=== PATIENT | male | born 1970 | race Caucasian/White ===

== ENCOUNTER 2019-03-31 04:58 | Inpatient (IN) ==
[2019-03-26 16:42] LABS: Appearance,Urine CLEAR; Bilirubin,Urine NEG (NEG); Color,Urine YELLOW; Glucose,Urine (UA) NEGATIVE (NEG); Ketones,Urine NEG (NEG); Leukocyte Esterase,Urine NEG /uL (NEG); Nitrate,Urine NEG (NEG); Protein,Urine NEG (NEG); Urine Blood NEG mg/dL (<0.03); Urobilinogen,Urine NEG (NEG)
[2019-03-26 20:13] LABS: Blood Urea Nitrogen 16 mg/dl (6-20); Calcium 9.3 mg/dl (8.6-10.4); Carbon Dioxide 25 mmol/L (22-30); Chloride 104 mmol/L (96-108); Glomerular Filtration Rate 107; Glucose 133 mg/dL (70-105)
[2019-03-26 20:19] LABS: Basophils # (Auto) 0.1 K/mcL (0.0-0.3); Basophils % (Auto) 0.7 % (0.0-2.0); Eosinophils # (Auto) 0.2 K/mcL (0.0-0.7); Eosinophils % (Auto) 2.4 % (0.0-7.0); Granulocytes % (Auto) 47.2 % (38.0-78.0); Hematocrit 41.3 % (41.0-55.0); Hemoglobin 14.2 g/dL (13.5-16.5); Lymphocytes % (Auto) 42.8 % (15.5-49.0); Mean Cell Volume 87.9 fL (80.0-100.0); Mean Corpuscular HGB Conc 34.4 g/dL (31.0-36.0); Mean Platelet Volume 7.6 fL (7.4-10.4); Monocytes # (Auto) 0.5 K/mcL (0.1-0.9); Monocytes % (Auto) 6.9 % (1.0-12.0); Platelet Count 233 K/mcL (140-440); Red Cell Distribution Width 12.7 % (11.5-14.5); WBC 7.1 K/mcL (4.5-11.0)
[2019-03-26 20:45] LABS: Estimated Average Glucose(eAG) 151 mg/dL; Hemoglobin A1C 6.9 % HGB (4.0-6.0)
[2019-03-26 21:00] LABS: INR 0.9 (0.9-1.1); Prothrombin Time 12.3 sec (11.9-14.5)
[2019-03-31] MEDS ORDERED: IPRATROPIUM/ALBUTEROL 3 ML AMPUL.NEB NEB PRN ×2 (05:00→08:23)
[2019-03-31] MEDS ORDERED: SCOPOLAMINE 1 PATCH PATCH TOPICAL PRN (05:00)
[2019-03-31] MEDS ORDERED: ceFAZolin 2 GM in DEXTROSE 5% IN WATER 50 ML IV SCH (06:00)
[2019-03-31] MEDS ORDERED: 0.9 % SODIUM CHLORIDE 9 ML, KETOROLAC 30 MG, ROPIVACAINE HCL/PF 49.5 ML, EPINEPHrine 0.... IJ SCH (06:00)
[2019-03-31] MEDS ORDERED: GABAPENTIN 300 MG CAPSULE PO SCH (06:00)
[2019-03-31] MEDS ORDERED: oxyCODONE 10 MG TAB.ER.12H PO SCH (06:00)
[2019-03-31] MEDS ORDERED: CELECOXIB 200 MG CAPSULE PO SCH (06:00)
[2019-03-31] MEDS ORDERED: ACETAMINOPHEN 500 MG TABLET PO SCH (06:00)
[2019-03-31] MEDS ORDERED: MIDAZOLAM 2 MG/2 ML VIAL IV ONE (07:50)
[2019-03-31] MEDS ORDERED: ONDANSETRON 4 MG/2 ML VIAL IV ONE (07:50)
[2019-03-31] MEDS ORDERED: DEXAMETHASONE 10 MG/ML VIAL IV ONE (07:50)
[2019-03-31] MEDS ORDERED: ePHEDrine 50 MG/ML AMPUL IV ONE (07:50)
[2019-03-31] MEDS ORDERED: LIDOCAINE HCL/PF 100 MG/5 ML SYRINGE IV ONE (07:50)
[2019-03-31] MEDS ORDERED: KETAMINE 100 MG/ML ML IV ONE (07:50)
[2019-03-31] MEDS ORDERED: PHENYLEPHRINE 10 MG/ML VIAL IV ONE (07:50)
[2019-03-31] MEDS ORDERED: PROPOFOL 200 MG/20 ML VIAL IV ONE (07:50)
[2019-03-31] MEDS ORDERED: GLYCOPYRROLATE 0.2 MG/ML VIAL IV ONE (07:50)
[2019-03-31] MEDS ORDERED: TRANEXAMIC ACID 1,000 MG/10 ML VIAL IV ONE ×2 (07:50→09:15)
[2019-03-31] MEDS ORDERED: ROPIVACAINE HCL/PF 20 ML VIAL IJ ONE (07:50)
[2019-03-31] MEDS ORDERED: GENTAMICIN SULFATE 800 MG/20 ML VIAL IR ONE (08:04)
[2019-03-31] MEDS ORDERED: METOPROLOL TARTRATE 5 MG/5 ML VIAL IV PRN (08:23)
[2019-03-31] MEDS ORDERED: LACTATED RINGERS 250 ML IV PRN (08:23)
[2019-03-31] MEDS ORDERED: ONDANSETRON 4 MG/2 ML VIAL IV PRN ×2 (08:23→09:15)
[2019-03-31] MEDS ORDERED: BENZOCAINE/MENTHOL 1 LOZENGE PO PRN ×2 (08:23→09:15)
[2019-03-31] MEDS ORDERED: METHOCARBAMOL 1,000 MG/10 ML VIAL IV PRN (08:23)
[2019-03-31] MEDS ORDERED: fentaNYL 100 MCG/2 ML VIAL IV PRN (08:23)
[2019-03-31] MEDS ORDERED: FLUMAZENIL 0.1 MG/ML ML IV PRN (08:23)
[2019-03-31] MEDS ORDERED: LABETALOL 5 MG/ML ML IV PRN (08:23)
[2019-03-31] MEDS ORDERED: NALOXONE HCL 0.4 MG/ML VIAL IV PRN (08:23)
[2019-03-31] MEDS ORDERED: LACTATED RINGERS 1,000 ML IV SCH (08:30)
[2019-03-31] MEDS ORDERED: MAGNESIUM HYDROXIDE 30 ML ORAL.SUSP PO PRN (09:15)
[2019-03-31] MEDS ORDERED: POLYETHYLENE GLYCOL 3350 17 GM PACKET PO PRN (09:15)
[2019-03-31] MEDS ORDERED: TEMAZEPAM 15 MG CAPSULE PO PRN (09:15)
[2019-03-31] MEDS ORDERED: ACETAMINOPHEN 325 MG TABLET PO PRN (09:15)
[2019-03-31] MEDS ORDERED: FLEETS ADULT ENEMA PR PRN (09:15)
[2019-03-31] MEDS ORDERED: BISACODYL 10 MG SUPP.RECT PR PRN (09:15)
[2019-03-31] MEDS ORDERED: HYDROmorphone 2 MG/ML VIAL IV PRN (09:15)
[2019-03-31] MEDS ORDERED: ONDANSETRON 4 MG ODT TABLET PO PRN (09:18)
--- NOTE | 2019-03-31 10:25 | XRay Report ---
CLINICAL INFORMATION: Post-Op Total Knee COMPARISON: None. FINDINGS: Total knee prostheses is anatomically aligned. No osseous abnormality. Periarticular gas in soft tissues seen seen as expected. IMPRESSION: Negative Interpreted and Authenticated by: Binh Rosa 03/31/19
[2019-03-31] MEDS: LACTATED RINGERS 1,000 ML IV SCH ×2 (10:32→20:47)
[2019-03-31] MEDS: KETOROLAC 15 MG/ML VIAL IV SCH ×3 (12:01→23:59)
--- NOTE | 2019-03-31 12:39 | Discharge Summary ---
Ortho Discharge - TKA - Patient Instructions Diet: Regular Diet Activity: activity as tolerated, weight bearing as tolerated Total Knee Protocol: For Total Knee: Start ROM TWYLA with stationary bike or rocking chair. Work on gaining full extension of knee. Posterior dislocation precautions provided. Hip abductor strengthening and gait training instructions provided. Apply Cryocuff as instructed. Dressing Care: May shower in 2 days - Follow Up Plan Follow Up Appointments: Pradeep Escalante PA-C [Physician Guest Services Associate] - 04/15/19 9:20 am Disposition: Home, Self-Care Prognosis: Good Rehab Potential: Good I certify that the patient requires SNF services: No Overall status at discharge: patient is progressing back to baseline - Orders For Discharge Prescriptions: Docusate Sodium [Colace] 100 mg PO BID #60 capsule Aspirin [Ecotrin] 325 mg PO BID #60 tab.ec HYDROcodone/APAP 10/325MG [Boley 10-325Mg] 1 - 2 tab PO Q4HP PRN #75 tablet PRN Reason: Pain Level 3-6
--- NOTE | 2019-03-31 12:41 | Brief Operative Note ---
Date of procedure: 03/31/19 Pre-op diagnosis: Left knee djd severe Post-op diagnosis: same Procedure: left knee tka with stephanie robot Grafts/Implants: Yes Anesthesia: MARIA A Surgeon: Tawanda Fernandez Nursing Assoc: Pradeep Escalante Estimated blood loss (cc): 100 Tourniquet Time (Minutes): 45 Specimens Removed/Pathology: none sent Condition: stable Disposition: PACU
--- NOTE | 2019-03-31 13:21 | Operative Note ---
DATE OF OPERATION: 03/31/2019 PREOPERATIVE DIAGNOSIS: Left knee degenerative arthrosis with multiple loose bodies of osteochondromas. POSTOPERATIVE DIAGNOSIS: Left knee degenerative arthrosis with multiple loose bodies of osteochondromas. PROCEDURE: Left total knee arthroplasty with multiple loose body removal. SURGEON: Tawanda Fernandez MD A R SPECIALIST: Pradeep Escalante PA-C. This provider's expertise and technical skill were required throughout the case. The JAYJAY assisted with preoperative coordination, intraoperative retraction, wound closure, dressing and splint application, as well as postoperative documentation and care coordination. ANESTHESIA: General LMA anesthesia. COMPLICATIONS: None. TOTAL TOURNIQUET TIME: Approximately 46 minutes. DESCRIPTION OF PROCEDURE: The patient was brought to the operating room and put to sleep with general LMA anesthesia. Once asleep, the patient had the left leg sterilely prepped and draped in the usual sterile fashion. A timeout was performed. We confirmed the operative site by initials, consent form, and x-rays. Preop antibiotics and tranexamic acid had been given as well. We then made a midline incision through a mid vastus approach exposing the joint showing severe arthritis throughout as well as multiple large loose bodies, both in the back of the knee and in the superior pouch. Once done, these were removed. We then placed the arrays and registered the robot, placed intra-articular pins and balanced the knee, both at 90 degrees and 15 degrees. Once perfectly balanced we made the bone and cut using the robot and then put into place the implants and trialed this. This seemed to fit very nicely. The patella was very thick, measuring 26.5 mm. This was cut to 16.5 mm and we then placed a 38 oval patella. With this, we recreated all the joint spaces. We irrigated thoroughly and then cemented into place the components. The patient tolerated this well. Excess cement was removed and we closed the mid vastus approach with #1 Stratafix. We closed the skin with 2-0 Vicryl and adhesive closure. The patient tolerated this well. There was no complication. Sterile bandage was applied. RBH:efrain Job ID: [id number] Doc ID: [id number] Tawanda Fernandez MD
[2019-03-31] MEDS: HYDROcodone/APAP 10/325MG TABLET PO PRN ×2 (14:24→19:00)
[2019-03-31] MEDS: ceFAZolin 1 GM VIAL IV SCH ×2 (14:24→22:01)
[2019-03-31] MEDS: 0.9 % SODIUM CHLORIDE 10 ML SYRINGE IV SCH ×2 (16:24→22:01)
[2019-03-31] MEDS: GABAPENTIN 300 MG CAPSULE PO SCH ×2 (16:29→20:53)
[2019-03-31] MEDS: DOCUSATE SODIUM 100 MG CAPSULE PO SCH (20:52)
[2019-03-31] MEDS: ASPIRIN 325 MG ENTERIC COATED TABLET PO SCH (20:53)
[2019-03-31] MEDS ORDERED: ATORVASTATIN 20 MG TABLET PO SCH (21:00)
[2019-03-31] MEDS ORDERED: Empagliflozin [Jardiance] 25 MG PO SCH (21:00)
[2019-03-31] MEDS ORDERED: ROSUVASTATIN 10 MG TABLET PO SCH (21:00)
[2019-03-31] MEDS ORDERED: OMEPRAZOLE 20 MG CAPSULE PO SCH (21:00)
[2019-03-31] MEDS ORDERED: SENNOSIDES 1 TABLET PO SCH (21:00)
[2019-03-31] MEDS ORDERED: POTASSIUM CHLORIDE 10 MEQ TABLET PO SCH (21:00)
[2019-03-31] MEDS ORDERED: LISINOPRIL 20 MG TABLET PO SCH (21:00)
[2019-03-31] MEDS ORDERED: MAGNESIUM OXIDE 400 MG TABLET PO SCH (21:00)
[2019-03-31] MEDS ORDERED: PIOGLITAZONE 15 MG TABLET PO SCH (21:00)
[2019-03-31] MEDS ORDERED: ALLOPURINOL 300 MG TABLET PO SCH (21:00)
[2019-03-31] MEDS ORDERED: ALLOPURINOL 100 MG TABLET PO SCH (21:00)
[2019-04-01] MEDS: HYDROcodone/APAP 10/325MG TABLET PO PRN ×3 (02:21→12:39)
[2019-04-01] MEDS: LACTATED RINGERS 1,000 ML IV SCH (03:36)
[2019-04-01] MEDS: 0.9 % SODIUM CHLORIDE 10 ML SYRINGE IV SCH ×2 (05:46→14:52)
[2019-04-01] MEDS: KETOROLAC 15 MG/ML VIAL IV SCH ×2 (05:46→14:51)
[2019-04-01] MEDS: DOCUSATE SODIUM 100 MG CAPSULE PO SCH (08:43)
[2019-04-01] MEDS: ASPIRIN 325 MG ENTERIC COATED TABLET PO SCH (08:43)
[2019-04-01] MEDS: GABAPENTIN 300 MG CAPSULE PO SCH (08:44)
== END 2019-04-01 12:40 | disposition home or self-care (01) | DRG 470 ==
LOC: MEDSUR 04:58
PROVIDERS: ADMIT Orthopaedic Surgery; ATTEND Orthopaedic Surgery